=== PATIENT | male | born 1960 | race Caucasian/White ===

== ENCOUNTER 2021-04-19 15:45 | Emergency (ER) | payer BC ==
[~2021-04-19] VITALS: Ht 177.8 cm; Wt 111.2 kg
[~2021-04-19 15:45] MED LIST: ATEN50TA41 PO; DOCU100C40 PO; FOLI1TAB16 PO; MULT-1179 PO; THI100T PO
[2021-04-19 15:59] VITALS: BP 183/123
[2021-04-19 17:34] LABS: BASOPHILS # (AUTO) 0.1 X10'3 (0-0.2); BASOPHILS % (AUTO) 0.8 % (0-1); EOSINOPHILS # (AUTO) 0.1 X10'3 (0-0.9); EOSINOPHILS % (AUTO) 0.6 % (0-6); HEMATOCRIT 50.3 % (42.0-52.0); HEMOGLOBIN 17.1 g/dl (14.0-17.9); LYMPHOCYTES # (AUTO) 1.8 X10'3 (1.1-4.8); LYMPHOCYTES % (AUTO) 20.7 % (21-51); MEAN CORPUSCULAR HEMOGLOBIN 32.7 PG (27.0-31.0); MEAN CORPUSCULAR VOLUME 96.1 FL (78-98); MEAN PLATELET VOLUME 8.3 FL (7.4-10.4); MONOCYTES # (AUTO) 0.8 X10'3 (0-0.9); MONOCYTES % (AUTO) 9.1 % (2-12); NEUTROPHILS % (AUTO) 68.8 % (42-75); PLATELET COUNT 227 X10'3 (140-440); RED BLOOD COUNT 5.24 X10'6 (4.70-6.10); RED CELL DISTRIBUTION WIDTH 13.5 % (11.5-14.5); WHITE BLOOD COUNT 8.7 X10'3 (4.5-11.0)
[2021-04-19] MEDS ORDERED: LORazepam 2 mg/ml vial IM ONE (17:40)
[2021-04-19 17:57] LABS: ALANINE AMINOTRANSFERASE 45 U/L (12-78); ALBUMIN 3.3 G/DL (3.4-5.0); ALBUMIN/GLOBULIN RATIO 0.7 (1.1-1.5); ALKALINE PHOSPHATASE 117 IU/L (46-116); ANION GAP 10 (8-16); ASPARTATE AMINO TRANSFERASE 39 U/L (10-37); BILIRUBIN,TOTAL 0.9 MG/DL (0.1-1.0); BLOOD UREA NITROGEN 19 MG/DL (7-18); BUN/CREATININE RATIO 15.7 (5.4-32.0); C-REACTIVE PROTEIN 5.77 MG/DL (0.0-0.5); CALCIUM 8.7 MG/DL (8.5-10.1); CHLORIDE 98 MMOL/L (99-107); CREATININE 1.21 MG/DL (0.60-1.10); GLUCOSE 104 MG/DL (70-104); POTASSIUM 4.2 MMOL/L (3.5-5.1); SODIUM 134 MMOL/L (135-145); TOTAL CARBON DIOXIDE 26.1 MMOL/L (24-32); eGFR 61 ML/MIN
[2021-04-19] MEDS ORDERED: CIP750T PO (22:56)
[2021-04-19] MEDS ORDERED: ciprofloxacin 250mg tablet PO SCH (23:05)
[2021-04-20] MEDS ORDERED: ciprofloxacin 250mg tablet PO SCH (10:00)
== END 2021-04-19 23:33 | disposition home or self-care (01) ==
LOC: ER 15:46
DX: S91.301A Unspecified open wound, right foot, initial encounter (principal); M86.9 Osteomyelitis, unspecified; R73.03 Prediabetes; I10 Essential (primary) hypertension; Z86.19 Personal history of other infectious and parasitic diseases; Z79.2 Long term (current) use of antibiotics; Z79.899 Other long term (current) drug therapy; X58.XXXA Exposure to other specified factors, initial encounter; Y93.89 Activity, other specified; Y92.89 Other specified places as the place of occurrence of the external cause; Y99.8 Other external cause status
CPT/HCPCS: 36415; 73630; 80053; 84145; 85025; 85651; 86140; 99284

== ENCOUNTER 2021-05-19 14:17 | Emergency (ER) | payer BC ==
[~2021-05-19] VITALS: Ht 185.4 cm; Wt 104.3 kg
[2021-05-19] MEDS ORDERED: piperacillin/tazo 3.375gm/50ml 50 ML IV ONE (20:05)
[2021-05-19] MEDS ORDERED: vancomycin/NS 1 GM ADD-VANTAGE 250 ML IV ONE (20:05)
[2021-05-19] MEDS ORDERED: normal saline 1000ml 1,000 ML IV ONE ×2 (20:05→21:00)
[2021-05-19 20:29] LABS: BASOPHILS # (AUTO) 0.1 X10'3 (0-0.2); BASOPHILS % (AUTO) 0.9 % (0-1); EOSINOPHILS # (AUTO) 0.1 X10'3 (0-0.9); EOSINOPHILS % (AUTO) 1.9 % (0-6); HEMATOCRIT 48.9 % (42.0-52.0); HEMOGLOBIN 16.6 g/dl (14.0-17.9); LYMPHOCYTES % (AUTO) 36.5 % (21-51); MEAN CORPUSCULAR HGB CONC 33.8 g/dL (33.0-36.5); MEAN CORPUSCULAR VOLUME 94.7 FL (78-98); MEAN PLATELET VOLUME 8.5 FL (7.4-10.4); MONOCYTES # (AUTO) 0.6 X10'3 (0-0.9); MONOCYTES % (AUTO) 11.1 % (2-12); NEUTROPHILS # (AUTO) 2.8 X10'3 (1.8-7.7); NEUTROPHILS % (AUTO) 49.6 % (42-75); PLATELET COUNT 309 X10'3 (140-440); RED BLOOD COUNT 5.17 X10'6 (4.70-6.10); RED CELL DISTRIBUTION WIDTH 13.3 % (11.5-14.5); WHITE BLOOD COUNT 5.6 X10'3 (4.5-11.0)
[2021-05-19 20:43] LABS: ALANINE AMINOTRANSFERASE 76 U/L (12-78); ALBUMIN 3.5 G/DL (3.4-5.0); ALBUMIN/GLOBULIN RATIO 0.7 (1.1-1.5); ALKALINE PHOSPHATASE 138 IU/L (46-116); ANION GAP 14 (8-16); ASPARTATE AMINO TRANSFERASE 69 U/L (10-37); BILIRUBIN,TOTAL 0.4 MG/DL (0.1-1.0); BLOOD UREA NITROGEN 25 MG/DL (7-18); BUN/CREATININE RATIO 14.5 (5.4-32.0); CALCIUM 8.9 MG/DL (8.5-10.1); CHLORIDE 98 MMOL/L (99-107); CREATININE 1.73 MG/DL (0.60-1.10); GLUCOSE 90 MG/DL (70-104); POTASSIUM 3.8 MMOL/L (3.5-5.1); SODIUM 135 MMOL/L (135-145); TOTAL CARBON DIOXIDE 23.2 MMOL/L (24-32); TOTAL PROTEIN 8.4 G/DL (6.4-8.2); eGFR 41 ML/MIN
[2021-05-19 23:10] VITALS: BP 128/95
== END 2021-05-19 23:12 | disposition home or self-care (01) ==
LOC: ER 14:19
DX: L02.611 Cutaneous abscess of right foot (principal); M86.9 Osteomyelitis, unspecified; I10 Essential (primary) hypertension; Z98.890 Other specified postprocedural states; Z79.899 Other long term (current) drug therapy
CPT/HCPCS: 36415; 80053; 83605; 84145; 85025; 87040; 96365; 96366; 96368; 99285; J2543; J3370; J7030

== ENCOUNTER 2022-03-10 19:47 | Outpatient (CLI) | payer BC ==
[~2022-03-10 19:47] MED LIST changes: -FOLI1TAB16 PO; +FOLI1TAB27 PO
[2022-03-10 20:13] LABS: BASOPHILS # (AUTO) 0.1 X10'3 (0-0.2); BASOPHILS % (AUTO) 1.4 % (0-1); EOSINOPHILS # (AUTO) 0.3 X10'3 (0-0.9); EOSINOPHILS % (AUTO) 5.9 % (0-6); HEMATOCRIT 44.2 % (42.0-52.0); HEMOGLOBIN 14.4 g/dl (14.0-17.9); LYMPHOCYTES # (AUTO) 1.6 X10'3 (1.1-4.8); LYMPHOCYTES % (AUTO) 34.9 % (21-51); MEAN CORPUSCULAR HGB CONC 32.6 g/dL (33.0-36.5); MEAN CORPUSCULAR VOLUME 88.8 FL (78-98); MEAN PLATELET VOLUME 9.2 FL (7.4-10.4); MONOCYTES # (AUTO) 0.4 X10'3 (0-0.9); MONOCYTES % (AUTO) 7.6 % (2-12); NEUTROPHILS # (AUTO) 2.3 X10'3 (1.8-7.7); NEUTROPHILS % (AUTO) 50.2 % (42-75); PLATELET COUNT 257 X10'3 (140-440); RED BLOOD COUNT 4.98 X10'6 (4.70-6.10); WHITE BLOOD COUNT 4.7 X10'3 (4.5-11.0)
[2022-03-10 20:16] LABS: ALBUMIN 3.5 G/DL (3.4-5.0); ANION GAP 10 (8-16); BLOOD UREA NITROGEN 19 MG/DL (7-18); BUN/CREATININE RATIO 20.7 (5.4-32.0); C-REACTIVE PROTEIN 0.15 MG/DL (0.0-0.5); CHLORIDE 105 MMOL/L (99-107); CREATININE 0.92 MG/DL (0.60-1.10); GLUCOSE 108 MG/DL (70-104); POTASSIUM 4.6 MMOL/L (3.5-5.1); SODIUM 141 MMOL/L (135-145); TOTAL CARBON DIOXIDE 26.4 MMOL/L (24-32); eGFR 84 ML/MIN
== END 2022-03-10 23:59 | disposition home or self-care (01) ==
LOC: LAB SPEC 19:47
PROVIDERS: ATTEND Internal Medicine Infectious Disease
DX: M86.171 Other acute osteomyelitis, right ankle and foot (principal)
CPT/HCPCS: 36415; 80048; 85025; 86140

== ENCOUNTER 2025-08-11 18:21 | Inpatient (IN) | payer BC ==
[~2025-08-11] VITALS: Ht 182.9 cm; Wt 94.6 kg
[2025-08-11 19:00] LABS: MEAN PLATELET VOLUME 7.5 FL (7.4-10.4); RED CELL DISTRIBUTION WIDTH 13.3 % (11.5-14.5)
[2025-08-11 19:14] LABS: CREATININE 1.29 MG/DL (0.60-1.10); TOTAL CARBON DIOXIDE 26.6 MMOL/L (24-32); eCRCL 64 ML/MIN; eGFR 56 ML/MIN
--- NOTE | 2025-08-11 20:36 | Physician Documentation ---
History of Present Illness ~ Chief Complaint: Foot pain Stated Complaint: L FOOT INFECTION Time Seen by MD: 20:29 Primary Medical Doctor: none HPI Patient presents to the emergency room for evaluation of his left foot. He reports history of some degree of rheumatoid arthritis diagnosed years ago but untreated but he feels this is related to that has deformities of his toes that over time get worse and curled underneath his feet. He states he has had elective amputations in his right side it has been going to wound care for his infected toe in his left. Yesterday he is at his wound care clinic and they were cleaning it and he states that they suddenly took a piece of bone out of the foot and recommended he goes to the emergency room. He denies history of diabetes Tetanus witin 5 years: Yes Medication Reconciliation Allergies: Coded Allergies: No Known Allergies (Unverified , 08/11/10) Scheduled Atenolol (Atenolol), 50 MG PO DAILY Docusate Sodium (Docusate Sodium), 100 MG PO BID Folic Acid* (Folic Acid*), 2 MG PO DAILY Multivitamins,Therapeutic* (Theragran-M*), 1 EACH PO Q24H Thiamine Hcl (Thiamine Hcl), 100 MG PO DAILY Past Medical History Past Medical History: Hypertension, Cellulitis Past Surgical History: orthopedic surgeries Other Past Surgical History: Right foot x in 2011 Drug Use: none Lives with: Spouse Lives In: Home Occupation: employed Review of Systems ROS All review of systems negative except as per HPI Physical Exam Vital Signs: Temperature: 97.3, Source: Temporal, Heart Rate: 96, Respiratory Rate: 16, BP: 156/103, Pulse Oximetry: 100, Weight: 94.550 Physical Exam General: Patient is awake, alert, oriented x4 in no acute distress and well appearing.~ Head: Normocephalic and atraumatic. Eyes: Conjunctival normal. EOMI. PERRL. ENT: Mucous membranes moist. Neck: Supple, trachea is midline. Chest: Clear to auscultation bilaterally without rales, rhonchi, or wheezes. There is no accessory muscle use or retractions. Cardiac: RRR without murmurs, gallops, or rubs. Extremities: Good plethora of left foot however that has some darkening of the area around his MP joint of the lateral foot with a cavernous opening in between his 4th and 5th digits Progress Results/Orders Results/Orders Orders - ELLIOT HAGER MD Culture Blood (08/11/25 18:37) ESR (08/11/25 20:45) Piperacillin/Tazo 3.375gm/50ml (Zosyn 3. (08/11/25 21:05) Vancomycin/Ns 1 Gm Add-[place] (Vancomyc (08/11/25 21:05) Page Hospitalist (08/11/25 21:04) Fill Out Med Reconciliation (08/11/25 21:04) Completed Orders - ELLIOT HAGER MD Cbc/Diff (08/11/25 18:37) MG (08/11/25 18:37) Procalcitonin (08/11/25 18:37) BMP (08/11/25 18:37) Lacticsepsis (08/11/25 18:37) C-Reactive Protein (08/11/25 20:45) Vancomycin 1gm 200ml H20 (Peg) (Vancomyc (08/11/25 21:05) Vital Signs 08/11/25 08/11/25 08/11/25 18:30 20:36 21:00 Temp 97.3 97.3 Pulse 96 97 Resp 16 16 B/P (MAP) 156/103 170/108 (128) Pulse Ox 100 97 O2 Flow Rate 0 Laboratory Tests Test 08/11/25 18:48 White Blood Count 6.8 Red Blood Count 4.62 L Hemoglobin 14.9 Hematocrit 44.6 Mean Corpuscular Volume 96.5 Mean Corpuscular Hemoglobin 32.3 H Mean Corpuscular Hemoglobin Concent 33.4 Red Cell Distribution Width 13.3 Platelet Count 380 Mean Platelet Volume 7.5 Neutrophils (%) (Auto) 70.4 Lymphocytes (%) (Auto) 20.1 L Monocytes (%) (Auto) 7.5 Eosinophils (%) (Auto) 1.2 Basophils (%) (Auto) 0.8 Neutrophils # (Auto) 4.8 Lymphocytes # (Auto) 1.4 Monocytes # (Auto) 0.5 Eosinophils # (Auto) 0.1 Basophils # (Auto) 0.1 CBC Comment Sodium Level 138 Potassium Level 4.7 Chloride Level 104 Carbon Dioxide Level 26.6 Anion Gap 7 L Blood Urea Nitrogen 21 H Creatinine 1.29 H Estimated GFR/1.73 m2 56 BUN/Creatinine Ratio 16.3 Glucose Level 104 Lactic Acid Level 0.8 Calcium Level 8.6 Magnesium Level 2.3 C-Reactive Protein 3.18 H Albumin 2.8 L Procalcitonin < 0.05 Chemistry Comments Microbiology Date/Time Source Procedure Growth Status 08/11/25 18:51 Blood Arm Left Blood Culture - Preliminary NEGATIVE (LESS THAN 24 HOURS) Resulted Medical Decision Making Additional information obtaine: old records Findings Patient presented to the emergency room with foot ulcer to his left foot. Differentials include but are not limited to osteomyelitis, osteonecrosis, abscess, cellulitis, necrotizing fasciitis. Given history and physical exam he had not believe patient is suffering from necrotizing fasciitis. He is suffering from obvious osteomyelitis and we will admit for orthopedic consult and intervention. General Diff Dx:Considerations: Include: Abrasion, Contusion, Fracture, Hematoma, Laceration, Malunion, Neurovascular injury, Open fracture, Sprain, Ulcer, Other Knee Diff Dx:Considerations: Include: Abrasion, Arthritis, Contusion, DJD, Fracture-femur, Fracture-fibula, Fracture-patella, Fracture-tibia, Gout, Hematoma, Laceration, Meniscus injury, Neurovascular injury, Open fracture, Rheumatoid arthritis, Septic, Sprain, Sprain-MCL, Sprain-LCL, Sprain-ACL, Sprain-PCL, Other Ankle Diff Dx:Considerations: Include: Abrasion, Arthritis, Contusion, DJD, Fracture-metatarsal, Fracture-fibula, Fracture-tarsal, Fracture-tibia, Gout, Hematoma, Laceration, Malunion, Neurovascular injury, Nonunion, Open fracture, Osteomyelitis, Rheumatoid arthritis, Sprain, Septic, Ulcer, Other Foot Diff Dx:Considerations: Include: Abrasion, Arthritis, Cellulitis, Contusion, Dislocation, DJD, Fracture-metatarsal, Fracture-phalynx, Fracture- tarsal, Gout, Hematoma, Ingrown toenail, Laceration, Malunion, Neurovascular injury, Open fracture, Paronychia, Puncture, Rheumatoid, Sprain, Septic, Subungual hematoma, Ulcer, Other Toe Diff Dx:Considerations: Include: Abrasion, Cellulitis, Contusion, Dislocation, Felon, Fracture, Hematoma, Laceration, Neurovascular injury, Open fracture, Paronychia, Subungual hematoma, Other Departure Disposition: 01 HOME / SELF CARE / HOMELESS Impression: Primary Impression: Osteomyelitis Condition: Guarded Referrals: NO PRIMARY CARE PROVIDER (PCP) Signature Scribe Signature: No scribe Attestation: The note accurately reflects work and decisions made by me.Elliot Hager MD 08/11/25 21:17 ELLIOT HAGER MD Aug 11, 2025 20:36
--- NOTE | 2025-08-11 20:37 | RADIOLOGY REPORT ---
CLINICAL INDICATION: ROM LEFT TECHNIQUE: 3 views DI FOOT, COMPLETE (3VW MIN) Comparison: None FINDINGS: Exam limited by severe osteopenia and beam over penetration. Erosive and fragmented appearance of the 4th toe involving the metatarsal neck, head, and proximal phalangeal base. Remote appearing mid to distal 5th metatarsal amputation. Advanced chronic degenerative change and deformity of the 2nd MTP an d 1st interphalangeal joints. Nonfocal soft tissue swelling of the forefoot. Mild degenerative changes of the midfoot and hindfoot. IMPRESSION: 1. Limited exam due to technical factors as above, unknown prior surgical history, and lack of comparison imaging. 2. Fracture versus osteomyelitis spanning the 4th MTP joint as described. 3. Remote partial 5th metatarsal resection/amputation. Advanced chronic degenerative changes of the 1st and 2nd toes. Other chronic and incidental findings above.
[2025-08-11] MEDS ORDERED: VANCOMYCIN 1GM 200ML H20 (PEG) 200 ML IV ONE (21:05)
[2025-08-11] MEDS ORDERED: AMOX-580 PO (21:38)
[2025-08-11] MEDS ORDERED: APIX5TAB3 PO (21:38)
[2025-08-11] MEDS ORDERED: MUPI22OI30 TP (21:38)
[2025-08-11] MEDS: piperacillin/tazo 3.375gm/50ml 50 ML IV ONE (21:39)
[2025-08-11] MEDS: vancomycin/NS 1 GM ADD-VANTAGE 250 ML IV ONE (22:05)
[2025-08-11] MEDS ORDERED: potassium Cl 20 mEq SR tablet PO PRN ×2 (22:20)
[2025-08-11] MEDS ORDERED: magnesium Cl slow-release 64mg tablet PO PRN (22:20)
[2025-08-11] MEDS ORDERED: magnesium sulf-water 2g/50mL 50 ML IV PRN (22:20)
[2025-08-11] MEDS ORDERED: potassium Cl 40MEQ/1/2NS 520ml 520 ML IV PRN (22:20)
[2025-08-11] MEDS ORDERED: ondansetron/PF 4mg/2ml inj IV PRN (22:20)
[2025-08-11] MEDS ORDERED: magnesium hydroxide 30ml (MOM) UD suspension PO PRN (22:20)
[2025-08-11] MEDS ORDERED: mag hydrox/Alum hydrox/simeth 30ml oral suspension PO PRN (22:20)
[2025-08-11] MEDS ORDERED: magnesium sulf-water 4G/100mL 100 ML IV PRN (22:20)
--- NOTE | 2025-08-11 22:39 | HISTORY AND PHYSICAL-Residence ---
History & Physical Providers to CC Resident Creating Document: CRISTIANORAY, RES ~ History of Present Illness Primary Medical Doctor: none Reason for Admit\Complaint: Left foot abscess History of Present Illness Vinh Verdin is a 65 years old male pmh of rheumatoid arthritis, hypertension, AFib, partial right foot amputation came to the ED for the evaluation of left foot infection. Yesterday, the patient was seen at [facility] for infected 5th toe of left foot and while they were performing wound care, patient stated that they took piece of bone out, sent the specimen to [place] [facility] and recommended to go to ER. Patient endorses that 3 months ago he had small blister on the left food which was gradually progressed and infected. Patient denies pain and redness in left foot, fever, chills or neuropathic pain. Allergies: Coded Allergies: No Known Allergies (Unverified , 08/11/10) Home Medications Home Medications Active Atenolol 50 Mg Tablet 50 Mg PO DAILY Reported Augmentin 875/125 MG (Amoxicillin/Clavulanate Potassium) 875 Mg-125 Mg Tablet 1 Tab PO Q12H 10 Days Eliquis (Apixaban) 5 Mg Tablet 1 Tab PO Q12H 30 Days Bactroban* (Mupirocin) 22 Gm Tube 1 Applic TP BID Past Medical History Past Medical History rheumatoid arthritis hypertension AFib partial right foot amputation Past Surgical History Surgical History Comment partial right foot amputation Past Social History Smoking: Non-Smoker Alcohol Use: Occasionally Drug Use: None Lives with: Spouse Lives In: Home Occupation: employed ROS ROS Constitutional: No fever, chills, dizziness, weight gain or loss, night sweats Eyes: No pain, erythema, discharge, blurring of vision ENT: No sore throat, epistaxis, tinnitus Cardiovascular:No chest pain, palpitations, syncope, lower extremity edema, paroxysmal nocturnal dyspnea Respiratory: No Shortness of breath and cough, No hemoptysis. Gastrointestinal:No Abdominal pain, vomiting,nausea and melena. Normal appetite. No constipation,diarrhea, hematemesis, Musculoskeletal: No swelling or edema of extremities. Integumentary: No change in skin, hair, nails. No swelling, bruising, abrasions Neurologic: No weakness,No headache, neck pain, numbness or tingling of the extremities, Psychiatric: No delusions, depression, loss of interest in normal activity or change in sleep pattern, hallucinations, suicidal ideations Endocrine: No fatigue, no weakness. polydipsia, polyuria, change in appetite, heat or cold intolerance, sweating, dry skin Hematological: No bleeding, petechiae, bruising Allergies: No asthma or urticaria Exam Vitals: Vital Signs Date Time Temp Pulse Resp B/P (MAP) Pulse Ox O2 Delivery O2 Flow Rate FiO2 08/11/25 21:47 97.3 104 16 157/101 (119) 94 0 General: Awake , alert and oriented to time,place, person,not in distress HEENT: Atraumatic, normocephalic, PERRLA, EOMI, anicteric sclera ; pink conjunctiva, moist mucos membranes Neck: Trachea midline. Supple, normal range of motion, no JVD, no lymphadenopathy Chest and Respiratory: Equal breath sounds bilaterally, no tachypnea, wheezing, ronchi,rubs .Chest wall is symmetric and without deformity. Cardiac: S1, S2 heard,Regular rate and rhythm, no murmurs ,no gallops, no rubs. Abdomen: Soft, No tenderness, No guarding or rigidity, Farrar's sign negative. normal bowel sounds x4 quadrant, no hepatosplenomegaly MSK: Range of motion of all extremities are normal. There is no joint pain or joint swelling or joint erythema. There is no muscle pain or tenderness or swelling. Right lower extremity: Partial right foot amputation with well-healed scar, Left lower extremity: A 2 cm circular wound with central purulent discharge is noted on plantar surface near the 4th metatarsal head and abscess in interdigital space between 4th and 5th toe, ++ warm to touch Extremities: warm, well-perfused, No cyanosis, clubbing, 2+ pulses felt Neurological: Mental status exam: alert and consciousness, orientation, memory, speech - Cranial nerve test: Cranial nerves II-XII intact. - Motor system: Normal Nutrition, normal tone, Power 5/5, no involuntary movements - Sensory system: Intact - Reflex testing: Biceps, triceps and knee reflexes 2+ - Cerebellar: Normal Skin: Warm and dry Psychiatry: Affect and mood are normal Diagnostic Data Last Recorded Lab Results: 08/11/25184708/11/251847 Advance Care Planning Advanced Care plannin - 30 Minutes (I spent a total of 17 minutes on reviewing various resuscitative measures with the patient at the time of admission. The patient has decided on a full code status) Additional Plan Left foot abscess on 4th interdigital space and plantar surface Rule out osteomyelitis X-ray: Fracture versus osteomyelitis spanning the 4th MTP joint as described. Remote partial 5th metatarsal resection/amputation. WBC, lactate, procalcitonin are in normal limits ESR is 34 and CRP is 3.18 Ordered MRI of LLE in suspicion of osteomyelitis Dr. Arora, the podiatry Dr consult in the morning. Consult Infectious Disease in the morning Wound care was consulted Follow up on culture of abscess, blood Follow up on bone pathology report from [place] [facility] Started on IV vancomycin pharmacy to dose daily Started on IV Zosyn q.8h daily IV NS @ 100 mL/hr Mild acute kidney injury Creatinine is 1.29, BUN 21 IV NS @ 100 mL/hr Monitor BMP levels Hypertension BNP is 3626 Follow up on echocardiogram History of atrial fibrillation EKG showed normal sinus rhythm Held Eliquis, in view of possible surgery Code status: Full code DVT prophylaxis : SCDs Nutrition: Regular diet Physical therapy: ordered Line/tube: PIV Analgesia/sedation: Morphine Disposition: Continue antibiotics, follow up on , the museum guide and consult infectious disease. Resident attestation The above note has been reviewed and supervised by a senior resident PGY2/PGY3 Patient was seen, examined and discussed with the attending physician Travis Barragan MD Internal Medicine Resident, PGY 1 Patient was assessed and case discussed with resident. I agree with the H&P and assessment and plan as above, with no change. Yany Plascencia MD Critical Care Date of Service: Aug 11, 2025 Billing Provider: YANY PLASCENCIA MD, SUNIL KUMAR, RES Aug 11, 2025 22:39 YANY PLASCENCIA MD Aug 13, 2025 19:01
[2025-08-11 22:41] LABS: APTT 28 SECONDS (22-32); INR 1.2 INR
[2025-08-11] MEDS: normal saline 1000ml 1,000 ML IV SCH (22:47)
[2025-08-11 22:55] LABS: PHOSPHORUS 3.8 MG/DL (2.3-4.5); PRO BRAIN NATRIURETIC PEPTIDE 3626 PG/ML (0-125)
[2025-08-12 02:53] LABS: LEUKOCYTE ESTERASE ,URINE NEGATIVE (Neg); NITRITES, URINE NEGATIVE (Neg); OCCULT BLOOD,URINE NEGATIVE (Neg)
[2025-08-12 03:01] LABS: UA COLLECTION TYPE CLN CATCH MIDSTREAM
[2025-08-12 04:32] VITALS: BP 150/103; PULSE 94; RESP 14; TEMP 98.1; O2SAT 97
[2025-08-12 04:41] VITALS: RESP 14; O2SAT 98
[2025-08-12 06:00] VITALS: BP 153/96; PULSE 88; RESP 14; TEMP 97.4; O2SAT 99
[2025-08-12 06:13] LABS: MEAN PLATELET VOLUME 7.7 FL (7.4-10.4); RED CELL DISTRIBUTION WIDTH 13.4 % (11.5-14.5)
[2025-08-12 06:36] LABS: CHOL/HDL RATIO 2.8 (0.00-4.99); CREATININE 1.15 MG/DL (0.60-1.10); LDL CHOLESTEROL 83 MG/DL (50-100); TOTAL CARBON DIOXIDE 26.2 MMOL/L (24-32); eCRCL 72 ML/MIN; eGFR 64 ML/MIN
[2025-08-12] MEDS: K and/or MAG REPLACEMENT MC SCH (08:00)
[2025-08-12] MEDS: docusate sod 100mg capsule PO SCH (08:00)
[2025-08-12] MEDS: vancomycin/NS 1 GM ADD-VANTAGE 250 ML IV SCH (09:40)
[2025-08-12 10:00] VITALS: BP 157/96; PULSE 81; RESP 14; TEMP 97.7; O2SAT 99
[2025-08-12] MEDS: piperacillin/tazo 4.5gm/100ml 100 ML IV SCH (10:05)
--- NOTE | 2025-08-12 12:16 | RADIOLOGY REPORT ---
CLINICAL INDICATION: Possible osteomyelitis. COMPARISON: MRI LOWER EXTREMITY RIGHT on DOS: 05/05/21 TECHNIQUE: Multiplanar, multisequence MRI of the left foot was performed without intravenous contrast. Contrast: None. INTERPRETATION: Bones: There is T1 hypointensity in the 3rd metatarsal bone, the 3rd proximal phalanx, the 4th metatarsal, the 4th proximal, middle and distal phalanx, and 5th metatarsal distally as well as the 5th proximal phalanx. There is corresponding edema in all a These Bones. There is cortical destruction in the 4th metatarsal head. Findings are consistent with osteomyelitis. There is T1 hypointensity in the navicular bone, intermediate cuneiform, lateral cuneiform and the cuboid as well as the lateral aspect of the talus with patchy corresponding T1 hypointensity also reflecting osteomyelitis. Soft tissues: Diffuse soft tissue edema in the forefoot particularly the surrounding the 3rd, 4th and 5th toes. Ulceration noted in the plantar surface of the forefoot deep to the 4th metatarsal bone. IMPRESSION: 1. Osteomyelitis in the 3rd, 4th and 5th metatarsal bones, the 3rd proximal phalanx, 4th proximal, middle and distal phalanx and the 5th proximal phalanx as well as the navicular bone, lateral aspect of the talus, intermediate and lateral cuneiform, as described. 2. Soft tissue ulceration in the plantar surface of the forefoot deep to the 4th toe. Diffuse cellulitis in the forefoot.
--- NOTE | 2025-08-12 15:28 | CONSULTATION REPORT ---
History of Present Illness Providers to CC ~ Reason for Admit\Admit Dx: Left foot abscess Refering MD: Dr Leahy History of Present Illness The patient is a 65-year-old man known to me for neuropathy in his feet. He had some surgery years ago on the left foot. He has subsequently had a transmetatarsal amputation on the right foot. He presented with a several week history of the swelling and ulceration on his left foot. He was seen at [facility] where a loose piece of bone was pulled out of the wound and then referred to the ER. X-ray and MRI have been done Allergies: Coded Allergies: No Known Allergies (Unverified , 08/11/10) Home Medications Home Medications Active Atenolol 50 Mg Tablet 50 Mg PO DAILY Reported Augmentin 875/125 MG (Amoxicillin/Clavulanate Potassium) 875 Mg-125 Mg Tablet 1 Tab PO Q12H 10 Days Eliquis (Apixaban) 5 Mg Tablet 1 Tab PO Q12H 30 Days Bactroban* (Mupirocin) 22 Gm Tube 1 Applic TP BID Past Family History Family History: FH: breast cancer GRANDFATHER OR GRANDMOTHER Physical Exam Last Vital Signs Recorded: Temperature: 97.7, Source: Oral, Heart Rate: 81, Respiratory Rate: 14, BP: 157/96, Pulse Oximetry: 99, Weight: 94.550 General Appearance: alert, no apparent distress Extremities He has all his toes. There is a communicating sinus from between the 4th and 5th toe out through the plantar aspect of the foot which is packed with a dressing them. There was no obvious purulent discharge the but it is somewhat swollen and erythematous. There was generalized warmth about the foot. There was no reaction to light touch about the foot. Results Results/Orders Results/Orders X-rays and MRI reviewed. He has absence of the mid portion of the 5th metatarsal and destruction of the distal half of the 4th metatarsal Diagram Lab Result Diagram: 08/12/2528 08/12/25527 Assessment/Plan Problems/Diagnosis: (1) Non-healing wound Additional Plan I believe the proper treatment for this problem would be 4th and 5th toe amputation and amputation through the 4th and 5th metatarsals. I discussed this with the patient and he is agreement that this can be done. We will schedule this for tomorrow afternoon once OR time becomes available. DUONG CHEEMA Jr., MD Aug 12, 2025 15:28
--- NOTE | 2025-08-12 17:41 | ELECTROCARDIOGRAPH REPORT ---
[facility] Test Date: 2025-08-12 Test Time: 17:39:49 Pat Name: DEBI COCHRAN Department: [facility] Patient ID: [facility]-[id number] Room: [place] [id number] A Gender: M Shoe Repairer: : 1960 Requested By: DUONG CHEEMA Order Number: [id number] Reading MD: Dr. Willa Briones Measurements Intervals [place] Rate: 88 P: 0 AK: 0 QRS: 67 QRSD: 84 T: 50 QT: 372 QTc: 450 Interpretive Statements Atrial fibrillation Low voltage, extremity leads Electronically Signed On 08-13-2025 7:00:[address] Willa Briones Please click the below link to view image of tracing.
[2025-08-12 18:00] VITALS: BP 133/88; PULSE 77; RESP 14; TEMP 97.1; O2SAT 99
[2025-08-12] MEDS: JUVEN Shake w/Arg/Glut/Ca2+Bmb (Juven 19.3gm) pkt 240ml PO SCH (18:15)
--- NOTE | 2025-08-12 18:44 | CARDIOLOGY REPORT ---
APPROVED REPORT EXAM: Comprehensive 2D, Doppler, and color-flow Echocardiogram. Patient Location: 401 Blood Pressure: 153/96 mmHg Heart Rate: 99 bpm Indications Hypertension CIRCUS ROUSTABOUT: Nasima Briones MD Previous ECHO: 08/10/21, CVC, EF: 65; mod RVE; sev MARII; m GR 2D Dimensions LA Diam 4.2 cm IVSd 0.9 (0.7-1.1cm) LVDd 4.3 cm PWd 0.6 (0.7-1.1cm) RA Major 6.8 cm IVSs 1.2 (0.8-1.2cm) RA Minor 4.8 cm LVDs 3.0 (2.5-4.0cm) Aortic Root(2D) 2.1 cm PWs 1.2 (0.8-1.2cm) LVOT Diameter 2.06 (1.8-2.4cm) LVEF(%) 58.3 (>50%) Ao Asc Diam. 2.77 cm IVC 22.76 mm FS (%) 30.5 % SV 48.0 ml CO 3.7 L/min M-Mode Dimensions Left Atrium(MM) 4.90 (2.5-4.0cm) Aortic Root 3.02 (2.2-3.7cm) Aortic Cusp Exc 1.65 (1.5-2.0cm) MV EPSS 0.5 (<0.5cm) Aortic Valve AoV Peak Claus. 134.6 cm/s AoV VTI 24.6 cm AO Peak GR. 7.2 mmHg AO Mean GR. 4 mmHg LVOT VTI 19.05 cm LVOT Peak Claus. 104.9 cm/s RACHELLE(VTI)/BSA 2.58 cm2/m2 RACHELLE (VTI) 2.58 cm2 AI P 1/2 Time 632 ms AV DI 0.77 % TDI Lateral E' P. V 7.12 cm/s Tricuspid Valve TR P. Velocity 298 cm/s RAP ESTIMATE 10 mmHg TR Peak Gr. 36 mmHg RVSP 46 mmHg LEFT VENTRICLE Normal LV size and wall thickness. Overall systolic function is normal. LVEF is 60%. RIGHT VENTRICLE Right ventricle appears mildly dilated with adequate contractility. Elevated right heart pressures of 46 mmHg. ATRIA Left atrium is moderately dilated. Right atrium is moderately dilated. AORTIC VALVE Trileaflet AV appears mildly sclerotic without stenosis. Mild insufficiency. MITRAL VALVE Mild mitral annular calcification without stenosis. Trace regurgitation. TRICUSPID VALVE The tricuspid valve is normal in structure with mild regurgitation. PULMONIC VALVE The pulmonary valve is normal in structure with physiologic insufficiency. GREAT VESSELS The aortic root is normal in size. The ascending aorta is normal in size. IVC is dilated and collapses less than 50% with inspiration. PERICARDIUM Normal pericardium. No effusion. Conclusion Normal LV size and wall thickness. Overall systolic function is normal. LVEF is 60%. Right ventricle appears mildly dilated with adequate contractility. Elevated right heart pressures of 46 mmHg. Left atrium is moderately dilated. Right atrium is moderately dilated. Trileaflet AV appears mildly sclerotic without stenosis. Mild insufficiency. Mild mitral annular calcification without stenosis. Trace regurgitation. The tricuspid valve is normal in structure with mild regurgitation. The pulmonary valve is normal in structure with physiologic insufficiency. Normal pericardium. No effusion.
--- NOTE | 2025-08-12 19:30 | PROGRESS NOTE ---
Daily Progress Note Providers to CC ~ Antibiotic Timeout Antibiotic Ordered?: Yes Subjective The patient is very jovial even though he is aware he may have an amputation of his left foot has has a previous amputation of the right foot. The patient requested that Dr. Alvarez evaluate the patient for possible surgery Objective Vital Signs Date Time Temp Pulse Resp B/P (MAP) Pulse Ox O2 Delivery O2 Flow Rate FiO2 08/12/25 10:00 97.7 81 14 157/96 (116) 99 Room Air 08/12/25 00:05 0 Result Diagram: 08/12/2552708/12/25527 Gen. No acute distress alert and oriented 4 Lungs clear to ascultation bilaterally, no wheezes rales or rhonchi appreciated Heart normal sinus rhythm no murmurs rubs or clicks noted Abdomen soft nontender bowel sounds are normoactive Lower extremities dressing is present on the left lower extremity as well as the right foot Coagulation Studies Laboratory Tests Test 08/11/25 18:48 Prothrombin Time 12.1 SECONDS (9.0-12.0) H INR International Normalized Ratio 1.2 INR Activated Partial Thromboplast Time 28 SECONDS (22-32) Coagulation Comments Problem\\Assessment\\Plan Problems/Diagnosis: (1) Osteomyelitis # left foot abscess # osteomyelitis of the left foot On IV Zosyn and IV vancomycin MRI with the following findings: "1. Osteomyelitis in the 3rd, 4th and 5th metatarsal bones, the 3rd proximal phalanx, 4th proximal, middle and distal phalanx and the 5th proximal phalanx as well as the navicular bone, lateral aspect of the talus, intermediate and lateral cuneiform, as described. 2. Soft tissue ulceration in the plantar surface of the forefoot deep to the 4th toe. Diffuse cellulitis in the forefoot." Dr. Alvarez orthopedic surgeon consulted on the patient and will be taking the patient to surgery tomorrow. # history of atrial fibrillation currently in sinus rhythm Apixaban is held for surgery # kidney disease possibly KAMRON versus CKD Daily labs are ordered Date of Service: Aug 12, 2025 Billing Provider: DO MAYA DO Common Visit Codes: [id number] INP/OBS CARE(HIGH) DO MAYA DO Aug 12, 2025 19:30
[2025-08-12 22:00] VITALS: BP 147/91; PULSE 94; RESP 20; TEMP 97.6; O2SAT 99
[2025-08-13] VITALS (21 sets, daily range): BP systolic 128–174; BP diastolic 86–110; PULSE 72–118; RESP 10–20; TEMP 97.8–98.4; O2SAT 95–100
[2025-08-13 06:40] LABS: MEAN PLATELET VOLUME 8.0 FL (7.4-10.4); RED CELL DISTRIBUTION WIDTH 13.4 % (11.5-14.5)
[2025-08-13 06:50] LABS: CREATININE 1.14 MG/DL (0.60-1.10); TOTAL CARBON DIOXIDE 26.9 MMOL/L (24-32); eCRCL 73 ML/MIN; eGFR 65 ML/MIN
[2025-08-13] MEDS: VANCOMYCIN LEVEL IV ONE (09:58)
[2025-08-13] MEDS ORDERED: cloNIDine hcl/PF 100mcg/ml inj ONE (14:45)
[2025-08-13] MEDS ORDERED: fentaNYL/PF 50MCG/1 ML 2ML syringe ONE (14:47)
[2025-08-13] MEDS ORDERED: midazolam 1 mg/ML 2ml injection ONE (14:48)
[2025-08-13] MEDS ORDERED: ondansetron/PF 4mg/2ml inj IV PRN (14:55)
[2025-08-13] MEDS ORDERED: HYDROmorphone/PF 0.2 MG/ML SYRINGE IV PRN ×2 (14:55)
[2025-08-13] MEDS ORDERED: morphine 4 MG/ML inj SYRINge IV PRN (14:55)
[2025-08-13] MEDS ORDERED: acetaminophen 1,000mg/100ml IV 100 ML IV PRN (14:55)
[2025-08-13] MEDS: ringers solution, lacted 1,000 ML IV SCH (14:55)
[2025-08-13] MEDS ORDERED: dexamethasone sod phosphate 4mg/ml inj. ONE (15:22)
[2025-08-13] MEDS ORDERED: ROPIVAcaine 0.5% (5mg/ml) 30ml vial ONE (15:22)
[2025-08-13] MEDS ORDERED: LIDOcaine 2% (20mg/ml) 5ml vial ONE (15:22)
[2025-08-13] MEDS ORDERED: propofol inj 20 ML IV ONE (15:22)
[2025-08-13] MEDS ORDERED: ondansetron/PF 4mg/2ml inj ONE (15:23)
--- NOTE | 2025-08-13 15:52 | OPERATIVE REPORT ---
Operative Report Providers to ~ Date of Procedure: Aug 13, 2025 Pre-Operative Diagnosis: Chronic osteomyelitis left foot Post-Operative Diagnosis SAME as PRE-Op Procedure Performed Left foot amputation of the 4th and 5th metatarsals Surgeon: Noel Alvarez MD Lbd Teacher None Anesthesiologist: Jameel Montoya Type of Anesthesia: General Findings: Ankle block in addition to general anesthetic given Estimated Blood Loss: None Specimen Removed: None. 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 He has had multiple surgeries including amputations of the toes in his right foot and partial amputation of bone on his left foot. He presented with a chronic draining ulcer with the exposed bone around the 4th and 5th toes. Imaging showed destruction of the 4th and 5th metatarsals. Surgery is indicated to eliminate infection and effect bone coverage. Consent was obtained from the patient. Risks and benefits were discussed as well including but not limited to infection, bleeding, wound healing issues and need for further surgery. He agreed to proceed. He was given a general anesthetic in the leg was prepped and draped in usual manner with a tourniquet on the calf. An incision was made laterally over the foot and the remnant of the 5th metatarsal was identified. It was an ulceration on both the plantar and dorsal aspect between the 4th and 5th toes. The incision was brought up and around the 5th toe excising the sinus. That material was removed and appeared infected. The base of the metatarsal was removed as well. Sagittal saw was used to cut through the proximal 3rd of the 4th metatarsal angle and dissection was taken distally where that and the 4th toe were excised. Skin flaps were trimmed accordingly and thorough irrigation was done followed by closure with a Prolene suture. Sterile dressing was applied and the tourniquet was released. The foot perfused well and he was taken to the recovery room in stable condition. NOEL ALVAREZ Jr., MD Aug 13, 2025 15:52
[2025-08-13] MEDS: labetalol 20mg/4ml (5mg/ml) syringe IV PRN (16:16)
[2025-08-13] MEDS: hydrALAZINE 20mg/ml inj. IV PRN (16:44)
--- NOTE | 2025-08-13 20:04 | PROGRESS NOTE ---
Daily Progress Note Providers to CC ~ Antibiotic Timeout Antibiotic Ordered?: Yes Subjective I evaluated the patient prior to going to surgery the patient has no acute complaints in his resting comfortably in bed. Objective Vital Signs Date Time Temp Pulse Resp B/P (MAP) Pulse Ox O2 Delivery O2 Flow Rate FiO2 08/13/25 18:00 98.0 97 18 141/89 (106) 97 Room Air 08/13/25 17:05 0.0 Result Diagram: 08/13/2544408/13/25444 Gen. No acute distress alert and oriented 4 Lungs clear to ascultation bilaterally, no wheezes rales or rhonchi appreciated Heart normal sinus rhythm no murmurs rubs or clicks noted Abdomen soft nontender bowel sounds are normoactive Lower extremities dressing is present on the left lower extremity as well as the right foot Coagulation Studies Laboratory Tests Test 08/11/25 18:48 Prothrombin Time 12.1 SECONDS (9.0-12.0) H INR International Normalized Ratio 1.2 INR Activated Partial Thromboplast Time 28 SECONDS (22-32) Coagulation Comments Problem\\Assessment\\Plan Problems/Diagnosis: (1) Osteomyelitis # left foot abscess # osteomyelitis of the left foot On IV Zosyn and IV vancomycin MRI with the following findings: "1. Osteomyelitis in the 3rd, 4th and 5th metatarsal bones, the 3rd proximal phalanx, 4th proximal, middle and distal phalanx and the 5th proximal phalanx as well as the navicular bone, lateral aspect of the talus, intermediate and lateral cuneiform, as described. 2. Soft tissue ulceration in the plantar surface of the forefoot deep to the 4th toe. Diffuse cellulitis in the forefoot." Dr. Alvarez orthopedic surgeon consulted on the patient and will be taking the patient to surgery tomorrow. 08/13 status post left foot amputation of the 4th and 5th metatarsal today with Dr. Husam Alvarez orthopedic surgeon Consult ID in the a.m. # history of atrial fibrillation currently in sinus rhythm Apixaban is held for surgery 08/13 likely restart apixaban in the a.m. # kidney disease possibly KAMRON versus CKD Daily labs are ordered Disposition: Physical therapy will resume tomorrow the patient may require rehab Date of Service: Aug 13, 2025 Billing Provider: DO MAYA DO Common Visit Codes: [id number] INP/OBS CARE(HIGH) DO MAYA DO Aug 13, 2025 20:04
[2025-08-13] MEDS: VANCOmycin 1250MG/NS 250ml Bag 250 ML IV SCH (21:25)
[2025-08-14] VITALS (10 sets, daily range): BP systolic 148–162; BP diastolic 91–111; PULSE 64–110; RESP 14–21; TEMP 97–98.1; O2SAT 95–99
[2025-08-14 07:03] LABS: MEAN PLATELET VOLUME 8.0 FL (7.4-10.4); RED CELL DISTRIBUTION WIDTH 13.5 % (11.5-14.5)
[2025-08-14 07:12] LABS: CREATININE 1.16 MG/DL (0.60-1.10); TOTAL CARBON DIOXIDE 24.2 MMOL/L (24-32); eCRCL 72 ML/MIN; eGFR 64 ML/MIN
[2025-08-14] MEDS: hydrALAZINE 20mg/ml inj. IV PRN (12:33)
--- NOTE | 2025-08-14 19:54 | PROGRESS NOTE ---
Daily Progress Note Providers to CC ~ Antibiotic Timeout Antibiotic Ordered?: Yes Subjective I consulted Dr Yoselin Tabor DO Infectious Disease who is awaiting the cultures from the operating room and assessed that the patient likely does not have clear margins and stated the patient we will need to be hospitalized least over the weekend and will likely require six weeks of IV antibiotics. Objective Vital Signs Date Time Temp Pulse Resp B/P (MAP) Pulse Ox O2 Delivery O2 Flow Rate FiO2 08/14/25 13:35 151/97 (115) 08/14/25 12:33 95 08/14/25 10:00 98.1 16 97 Room Air 08/14/25 08:00 0.0 08/14/25 04:59 99 Result Diagram: 08/14/25 0610 08/14/25 0610 Gen. No acute distress alert and oriented 4 Lungs clear to ascultation bilaterally, no wheezes rales or rhonchi appreciated Heart normal sinus rhythm no murmurs rubs or clicks noted Abdomen soft nontender bowel sounds are normoactive Lower extremities dressing is present on the left lower extremity as well as the right foot Coagulation Studies Laboratory Tests Test 08/11/25 18:48 Prothrombin Time 12.1 SECONDS (9.0-12.0) H INR International Normalized Ratio 1.2 INR Activated Partial Thromboplast Time 28 SECONDS (22-32) Coagulation Comments Problem\\Assessment\\Plan Problems/Diagnosis: (1) Osteomyelitis # left foot abscess # osteomyelitis of the left foot On IV Zosyn and IV vancomycin MRI with the following findings: "1. Osteomyelitis in the 3rd, 4th and 5th metatarsal bones, the 3rd proximal phalanx, 4th proximal, middle and distal phalanx and the 5th proximal phalanx as well as the navicular bone, lateral aspect of the talus, intermediate and lateral cuneiform, as described. 2. Soft tissue ulceration in the plantar surface of the forefoot deep to the 4th toe. Diffuse cellulitis in the forefoot." Dr. Alvarez orthopedic surgeon consulted on the patient and will be taking the patient to surgery tomorrow. 08/13 status post left foot amputation of the 4th and 5th metatarsal today with Dr. uHsam Alvarez orthopedic surgeon Consult ID in the a.m. 08/14 Dr Yoselin Tabor DO Infectious Disease evaluated the patient and assessed likely the margins are not clear there were no intraoperative cultures obtained that is the patient will likely require six weeks of IV antibiotics. Informed me the patient will be here over the weekend # history of atrial fibrillation currently in sinus rhythm Apixaban is held for surgery 08/13 likely restart apixaban in the a.m. 08/14 the patient is dressing is blood stained that is the patient is bleeding from his surgical site and we will hold apixaban for an additional day and reassessed tomorrow # kidney disease possibly KAMRON versus CKD Daily labs are ordered Disposition: Physical therapy will resume tomorrow the patient may require rehab Date of Service: Aug 14, 2025 Billing Provider: DO MAYA DO Common Visit Codes: [id number] INP/OBS CARE(HIGH) DO MAYA DO Aug 14, 2025 19:54
--- NOTE | 2025-08-14 23:31 | CONSULTATION REPORT ---
Consult Consult Consultation Reason for Consult: L foot osteomyelitis Consulting Provider: Dr. Leahy Antibiotic Days: Vanc 2, Zosyn 2 Lines: PIV Micro: 08/11 Blood- ngtd HPI: Patient is a 65 year old male with past medical history of RA who is known to the ID service due to prior infections on his R foot who presented to [facility] on 08/11 due to a worsening wound on his L foot. He has been pursuing some outpatient care but could tell that his foot had become bad. Upon admission, he underwent Ortho consultation and amputation of the 4th and 5th metatarsals. ID is asked to consult, however, because his MRI also suggests some involvement at the ankle. On today's exam, he is eager to go home but operative cultures are not back yet (collected?). Patient states he does have access to some outpatient cultures and that he has been taking dicloxacillin and levafloxacin at home. He has no known antibiotic allergies. Past Medical/Surgical History: rheumatoid arthritis, hypertension, AFib, partial right foot amputation Current Medications Medications (Trade) Dose Ordered Sig/Kingsley Route PRN Reason Start Time Stop Time Status Last Admin Dose Admin Piperacillin/ Tazobactam/ Dextrose 50 ml @ 100 mls/hr ONCE ONCE IV 08/11/25 21:05 08/11/25 21:34 DC 08/11/25 21:39 100 MLS/HR Vancomycin HCl 250 ml @ 166.236 mls/hr ONCE ONCE IV 08/11/25 21:05 08/11/25 22:35 DC 08/11/25 22:05 166.236 MLS/HR Sodium Chloride 1,000 ml @ 100 mls/hr Q10H IV 08/11/25 22:20 08/14/25 21:29 100 MLS/HR Piperacillin/ Tazobactam/ Dextrose 100 ml @ 25 mls/hr Q8H@0600,1400,2200 IV 08/12/25 06:00 08/14/25 21:42 25 MLS/HR Vancomycin HCl 250 ml @ 166 mls/hr Q12H@1000,2200 IV 08/12/25 10:00 08/13/25 13:07 DC 08/13/25 10:00 166 MLS/HR Non-Formulary Medication 1 ONCE@0930 ONCE IV 08/13/25 09:30 08/13/25 09:31 DC 08/13/25 09:58 1 Enteral Nutritional Formula (DIANNA Shake w/ Arginine/glutam./ calcium) 1 cup BIDLD PO 08/12/25 17:30 08/14/25 17:30 1 CUP Vancomycin HCl 250 ml @ 166 mls/hr Q12H@1000,2200 IV 08/13/25 22:00 08/14/25 21:43 166 MLS/HR Labetalol HCl (Trandate 20 mg/ 4ml syringe) 5 mg Q5M PRN IV FOR HYPERTENSION-1ST CHOICE 08/13/25 14:55 08/14/25 14:54 DC 08/13/25 16:36 5 MG Hydralazine HCl (Apresoline inj.) 5 mg Q15M PRN IV Hypertension 2nd choice 08/13/25 14:55 08/13/25 18:25 DC 08/13/25 16:44 5 MG Hydralazine HCl (Apresoline inj.) 10 mg Q6H PRN IV high blood pressure 08/14/25 12:00 08/14/25 12:33 10 MG Social History: He prefers home infusion as he plans on working, his office isnear [employer]. He has a daughter who is in nursing Family History: Noncontributory ROS: As in HPI, otherwise negative Objective: Vitals: Afebrile, 64, 21, 153/93, 99% on RA General: A&Ox3, NAD HEENT: NC/AT, normal conjunctiva, no oral lesions CV: RRR, no murmurs Resp: CTA B Abd: Aoft, nontender, nondistended Ext: R foot well healed amputations; L foot in postop dressing Lines: PIV ok Laboratory Tests 08/14/25 06:10 08/13 MRI 1. Osteomyelitis in the 3rd, 4th and 5th metatarsal bones, the 3rd proximal phalanx, 4th proximal, middle and distal phalanx and the 5th proximal phalanx as well as the navicular bone, lateral aspect of the talus, intermediate and lateral cuneiform, as described. 2. Soft tissue ulceration in the plantar surface of the forefoot deep to the 4th toe. Diffuse cellulitis in the forefoot. Assessment: // L foot osteomyelitis s/p 4th and 5th digit amputations but MRI suggests enhancement of the ankle bones as well. I don't see any operative cultures yet but patient states he had outpatient cultures sent to the ID office -ESR 34, CRP 3.1 // RA, without IS recorded on home meds // Antibiotic Allergies: none known Plan: - Continue Vanc, Zosyn for now - Follow up operative cultures or obtain his outpatient cultures to deescalate - Anticipate need for 6 weeks of therapy for retained OM - Wound care per surgery - Monitor CBC, CMP, ESR, CRP weekly - Dispo planning; he prefers home infusion - Thank you for the consult, will continue to follow URIEL BRAXTON DO Aug 14, 2025 23:31
[2025-08-15 05:00] VITALS: BP 163/118; PULSE 72; RESP 18; TEMP 97.9; O2SAT 99
[2025-08-15 06:58] VITALS: RESP 16; O2SAT 96
[2025-08-15 07:18] LABS: MEAN PLATELET VOLUME 7.8 FL (7.4-10.4); RED CELL DISTRIBUTION WIDTH 13.8 % (11.5-14.5)
[2025-08-15 07:40] LABS: CREATININE 1.06 MG/DL (0.60-1.10); TOTAL CARBON DIOXIDE 25.8 MMOL/L (24-32); eCRCL 78 ML/MIN; eGFR 71 ML/MIN
[2025-08-15] MEDS: VANCOMYCIN LEVEL IV ONE (09:30)
[2025-08-15 10:00] VITALS: BP 135/99; PULSE 103; RESP 18; TEMP 97.3; O2SAT 98
[2025-08-15 18:00] VITALS: BP 149/98; PULSE 91; RESP 18; TEMP 97.3; O2SAT 99
--- NOTE | 2025-08-15 19:40 | PROGRESS NOTE ---
Daily Progress Note Providers to CC ~ Antibiotic Timeout Antibiotic Ordered?: Yes Subjective The patient is doing well other than that has still some bleeding of the bottom of his left foot. I will continue to hold apixaban for now Objective Vital Signs Date Time Temp Pulse Resp B/P (MAP) Pulse Ox O2 Delivery O2 Flow Rate FiO2 08/15/25 10:00 97.3 103 18 135/99 (111) 98 Room Air 08/15/25 06:58 0.0 08/14/25 04:59 99 Result Diagram: 08/15/2563008/15/25630 Gen. No acute distress alert and oriented 4 Lungs clear to ascultation bilaterally, no wheezes rales or rhonchi appreciated Heart normal sinus rhythm no murmurs rubs or clicks noted Abdomen soft nontender bowel sounds are normoactive Lower extremities dressing is present on the left lower extremity as well as the right foot Coagulation Studies Laboratory Tests Test 08/11/25 18:48 Prothrombin Time 12.1 SECONDS (9.0-12.0) H INR International Normalized Ratio 1.2 INR Activated Partial Thromboplast Time 28 SECONDS (22-32) Coagulation Comments Problem\\Assessment\\Plan Problems/Diagnosis: (1) Osteomyelitis # left foot abscess # osteomyelitis of the left foot On IV Zosyn and IV vancomycin MRI with the following findings: "1. Osteomyelitis in the 3rd, 4th and 5th metatarsal bones, the 3rd proximal phalanx, 4th proximal, middle and distal phalanx and the 5th proximal phalanx as well as the navicular bone, lateral aspect of the talus, intermediate and lateral cuneiform, as described. 2. Soft tissue ulceration in the plantar surface of the forefoot deep to the 4th toe. Diffuse cellulitis in the forefoot." Dr. Alvarez orthopedic surgeon consulted on the patient and will be taking the patient to surgery tomorrow. 08/13 status post left foot amputation of the 4th and 5th metatarsal today with Dr. Husam Alvarez orthopedic surgeon Consult ID in the a.m. 08/14 Dr Yoselin Tabor DO Infectious Disease evaluated the patient and assessed likely the margins are not clear there were no intraoperative cultures obtained that is the patient will likely require six weeks of IV antibiotics. Informed me the patient will be here over the weekend 08/15 white blood cell count remains normal range and the patient remains afebrile # history of atrial fibrillation currently in sinus rhythm Apixaban is held for surgery 08/13 likely restart apixaban in the a.m. 08/14 the patient is dressing is blood stained that is the patient is bleeding from his surgical site and we will hold apixaban for an additional day and reassessed tomorrow 08/15 patient continues to bleed from his surgical site. # kidney disease possibly KAMRON versus CKD Daily labs are ordered 08/15 improving Disposition: Physical therapy will resume tomorrow the patient may require rehab- anticipate PICC line on Sunday Date of Service: Aug 15, 2025 Billing Provider: DO MAYA DO Common Visit Codes: [id number] INP/OBS CARE(HIGH) DO MAYA DO Aug 15, 2025 19:40
[2025-08-15 20:00] VITALS: RESP 18; O2SAT 99
[2025-08-15 22:00] VITALS: BP 156/118; PULSE 94; RESP 18; TEMP 98.5; O2SAT 97
[2025-08-15] MEDS: vancomycin/NS 1 GM ADD-VANTAGE 250 ML IV SCH (22:07)
[2025-08-16 06:00] VITALS: BP 125/90; PULSE 99; RESP 14; TEMP 98.8; O2SAT 98
[2025-08-16 07:06] LABS: MEAN PLATELET VOLUME 7.9 FL (7.4-10.4); RED CELL DISTRIBUTION WIDTH 14.0 % (11.5-14.5)
[2025-08-16 07:51] LABS: CREATININE 1.16 MG/DL (0.60-1.10); TOTAL CARBON DIOXIDE 27.8 MMOL/L (24-32); eCRCL 72 ML/MIN; eGFR 64 ML/MIN
[2025-08-16 10:00] VITALS: BP 145/90; PULSE 102; RESP 15; TEMP 97.9; O2SAT 98
--- NOTE | 2025-08-16 17:44 | PROGRESS NOTE ---
Daily Progress Note Providers to CC ~ Antibiotic Timeout Antibiotic Ordered?: Yes Subjective Overall the patient is doing well- his left foot continues to bleed in the dressing I spoke with Dr. Alvarez whom was not concerned as that has not a significant amount of bleeding and recommended restarting apixaban. Objective Vital Signs Date Time Temp Pulse Resp B/P (MAP) Pulse Ox O2 Delivery O2 Flow Rate FiO2 08/16/25 09:44 99 08/16/25 08:00 Room Air 08/16/25 06:00 98.8 14 125/90 (102) 98 08/15/25 20:00 0.0 08/14/25 04:59 99 Result Diagram: 08/16/2561608/16/25616 Gen. No acute distress alert and oriented 4 Lungs clear to ascultation bilaterally, no wheezes rales or rhonchi appreciated Heart normal sinus rhythm no murmurs rubs or clicks noted Abdomen soft nontender bowel sounds are normoactive Lower extremities dressing is present on the left lower extremity as well as the right foot Coagulation Studies Laboratory Tests Test 08/11/25 18:48 Prothrombin Time 12.1 SECONDS (9.0-12.0) H INR International Normalized Ratio 1.2 INR Activated Partial Thromboplast Time 28 SECONDS (22-32) Coagulation Comments Problem\\Assessment\\Plan Problems/Diagnosis: (1) Osteomyelitis # left foot abscess # osteomyelitis of the left foot On IV Zosyn and IV vancomycin MRI with the following findings: "1. Osteomyelitis in the 3rd, 4th and 5th metatarsal bones, the 3rd proximal phalanx, 4th proximal, middle and distal phalanx and the 5th proximal phalanx as well as the navicular bone, lateral aspect of the talus, intermediate and lateral cuneiform, as described. 2. Soft tissue ulceration in the plantar surface of the forefoot deep to the 4th toe. Diffuse cellulitis in the forefoot." Dr. Alvarez orthopedic surgeon consulted on the patient and will be taking the patient to surgery tomorrow. 08/13 status post left foot amputation of the 4th and 5th metatarsal today with Dr. Husam Alvarez orthopedic surgeon Consult ID in the a.m. 08/14 Dr Yoselin Tabor DO Infectious Disease evaluated the patient and assessed likely the margins are not clear there were no intraoperative cultures obtained that is the patient will likely require six weeks of IV antibiotics. Informed me the patient will be here over the weekend 08/15 white blood cell count remains normal range and the patient remains afebrile 07/16 the patient continues to do well there was some mild bleeding in the dressing of his left foot which is to be expected. # history of atrial fibrillation currently in sinus rhythm Apixaban is held for surgery 08/13 likely restart apixaban in the a.m. 08/14 the patient is dressing is blood stained that is the patient is bleeding from his surgical site and we will hold apixaban for an additional day and reassessed tomorrow 08/15 patient continues to bleed from his surgical site. 08/[address] Alvarez and since the bleeding is minimal was not concerned and recommended to restart apixaban. # kidney disease possibly KAMRON versus CKD Daily labs are ordered Stable Disposition: The patient is ambulating ad kanika in the room and physical therapy signed off- anticipate PICC line on Sunday and recommendations for antibiotics by Dr Yoselin Tabor DO Infectious Disease - will need six weeks of IV antibiotics Date of Service: Aug 16, 2025 Billing Provider: DO MAYA DO Common Visit Codes: [id number] INP/OBS CARE(HIGH) DO MAYA DO Aug 16, 2025 17:43
[2025-08-16 18:00] VITALS: BP 183/125; PULSE 80; RESP 14; TEMP 98.5; O2SAT 98
[2025-08-16 22:00] VITALS: BP 150/70; PULSE 105; RESP 16; TEMP 96.9; O2SAT 98
[2025-08-17 05:50] LABS: MEAN PLATELET VOLUME 8.2 FL (7.4-10.4); RED CELL DISTRIBUTION WIDTH 13.7 % (11.5-14.5)
[2025-08-17 05:58] LABS: CREATININE 1.00 MG/DL (0.60-1.10); TOTAL CARBON DIOXIDE 23.6 MMOL/L (24-32); eCRCL 83 ML/MIN; eGFR 75 ML/MIN
[2025-08-17] MEDS: VANCOMYCIN LEVEL IV ONE (08:58)
--- NOTE | 2025-08-17 12:13 | PROGRESS NOTE ---
Daily Progress Note Providers to CC ~ Antibiotic Timeout Antibiotic Ordered?: Yes Subjective No new complaints. Patient states that if his antibiotics can be arranged , he wants to go home. Objective Vital Signs Date Time Temp Pulse Resp B/P (MAP) Pulse Ox O2 Delivery O2 Flow Rate FiO2 08/17/25 08:54 99 08/16/25 22:00 96.9 16 150/70 (96) 98 Room Air 08/15/25 20:00 0.0 08/14/25 04:59 99 Result Diagram: 08/17/2544308/17/25443 Gen. awake alert oriented asymptomatic HEENT: Normocephalic, atraumatic, extraocular movements are intact, sclera anicteric, conjunctiva pinkish, moist oral mucosa, no rash or ulcers. NECK: Supple, no JVD, trachea midline. CHEST: Clear to auscultation, no wheezes crackles or rhonchi. HEART: Regular rate rhythm, no murmur gallop or rub. ABDOMEN: Soft, nontender, no organomegaly. EXTREMITIES: No cyanosis clubbing or edema. NEURO EXAM: Grossly nonfocal. MUSCULOSKELETAL : No joint swelling or deformities. SKIN: No rash or ulcers noted. Bandage over the left foot noted. Coagulation Studies Laboratory Tests Test 08/11/25 18:48 Prothrombin Time 12.1 SECONDS (9.0-12.0) H INR International Normalized Ratio 1.2 INR Activated Partial Thromboplast Time 28 SECONDS (22-32) Coagulation Comments Other Results Medications reviewed Problem\\Assessment\\Plan Problems/Diagnosis: (1) Osteomyelitis # osteomyelitis/abscess of the left foot: Continue IV Zosyn and vancomycin. Patient was evaluated with an MRI which showed the following findings. "1. Osteomyelitis in the 3rd, 4th and 5th metatarsal bones, the 3rd proximal phalanx, 4th proximal, middle and distal phalanx and the 5th proximal phalanx as well as the navicular bone, lateral aspect of the talus, intermediate and lateral cuneiform, as described. 2. Soft tissue ulceration in the plantar surface of the forefoot deep to the 4th toe. Diffuse cellulitis in the forefoot." Dr. Alvarez orthopedic surgeon consulted and on 08/13 status patient underwent left foot amputation of the 4th and 5th metatarsal . Dr Yoselin Tabor DO Infectious Disease evaluated the patient and assessed likely the margins are not clear there were no intraoperative cultures obtained that is the patient will likely require six weeks of IV antibiotics. Patient is awaiting a PICC line placement . # History of atrial fibrillation : Continue eliquis # kidney disease possibly KAMRON versus CKD Continue monitor daily Cr. Disposition: The patient is ambulating ad kanika in the room and physical therapy signed off- anticipate PICC line today and recommendations for antibiotics by Dr Yoselin Tabor DO Infectious Disease - will need six weeks of IV antibiotics Date of Service: Aug 17, 2025 Billing Provider: MARINE HEAD MD Common Visit Codes: [id number] INP/OBS CARE(HIGH) MARINE HEAD MD Aug 17, 2025 12:13
--- NOTE | 2025-08-17 13:12 | RADIOLOGY REPORT ---
CHEST RADIOGRAPH Indication: RIGHT PICC PLACEMENT VERIFICATION Technique: Single frontal view of the chest was obtained COMPARISON: ANGIO LINE PLACEMENT(PICC NURSE) on DOS: 08/17/25 FINDINGS: Lines and Tubes: Right PICC in satisfactory position overlying the superior vena cava. Lungs: Clear Pleura: No effusion. No pneumothorax. Cardiomediastinal contours: Unremarkable Bones: Unremarkable IMPRESSION: Right PICC in satisfactory position.
[2025-08-17 17:07] VITALS: BP 172/110; PULSE 93
[2025-08-17 17:10] VITALS: BP 149/97; PULSE 90
--- NOTE | 2025-08-17 18:14 | PROGRESS NOTE ---
Progress Note ID Providers to CC ~ Progress Note Progress Note: Antibiotic Days: Vanc 5, Zosyn 5 Lines: PIV Micro: 08/11 Blood- ngtd Subjective: Patient was anxious to go home today. Unfortunately, it does not look like operative culture were taken Objective: Vitals: Afebrile, 105, 16, 150/70, 98% on RA General: Alert, NAD HEENT: NC/AT, normal conjunctiva, no oral lesions CV: Regular Resp: Clear anterirly Abd: Soft, nontender, nondistended Ext: R foot well healed amputations; L foot in postop dressing Lines: PIV ok Laboratory Tests 08/17/25 04:44 Assessment: // L foot osteomyelitis s/p 4th and 5th digit amputations but MRI suggests enhancement of the ankle bones as well. Operative cultures not taken -ESR 34, CRP 3.1 // RA, without IS recorded on home meds // Antibiotic Allergies: none known Plan: - Scripts for home infusion Vancomycin 750 mg IV Q12 hours Rocephin 2 gm IV daily CBC, CMP, ESR, CRP weekly Stop date: 09/24/25 Please remove PICC once therapy is complete - Therapy is empiric. He is not diabetic so anaerobic coverage no added. Follow up in ID office prior to stop date to ensure efficacy. He also thinks there may be recent cultures at [facility] wound care URIEL BRAXTON DO Aug 17, 2025 18:14
[2025-08-17 18:38] VITALS: BP 149/97; PULSE 85; RESP 16; TEMP 98.2; O2SAT 98
[2025-08-17] MEDS: vancomycin inj. 750 MG in normal saline 250ml IV soln 250 ML IV SCH (21:16)
[2025-08-17 22:00] VITALS: BP 160/99; PULSE 96; RESP 16; TEMP 97.5; O2SAT 97
[2025-08-18 05:55] LABS: CREATININE 1.18 MG/DL (0.60-1.10); TOTAL CARBON DIOXIDE 26.7 MMOL/L (24-32); eCRCL 70 ML/MIN; eGFR 62 ML/MIN
[2025-08-18 05:58] LABS: MEAN PLATELET VOLUME 8.2 FL (7.4-10.4); RED CELL DISTRIBUTION WIDTH 13.6 % (11.5-14.5)
[2025-08-18 06:00] VITALS: BP 165/100; PULSE 96; RESP 15; TEMP 97.3; O2SAT 98
[2025-08-18 10:00] VITALS: PULSE 94; RESP 14; TEMP 98.8; O2SAT 98
[2025-08-18 10:12] VITALS: BP 147/82; PULSE 92
[2025-08-18 10:15] VITALS: BP_SYST 147; PULSE 92
[2025-08-18] MEDS: CefTRIAXone 2gm/D5W 50ml BAG 50 ML IV ONE (12:35)
--- NOTE | 2025-08-18 17:00 | PROGRESS NOTE ---
Progress Note ID Providers to CC ~ Progress Note Progress Note: Antibiotic Days: Vanc 6, Zosyn 6 Lines: PICC Micro: 08/11 Blood- negative Subjective: Patient's share of cost was over $3000 but he still prefers home infusion Objective: Vitals: Afebrile, 94, 14, 165/100, 98% on RA General: Alert, NAD CV: Regular Resp: Clear anterirly Abd: Soft, nontender, nondistended Ext: R foot well healed amputations; L foot in postop dressing Lines: PICC occlusively dressed Laboratory Tests 08/18/25 05:27 Assessment: // L foot osteomyelitis s/p 4th and 5th digit amputations but MRI suggests enhancement of the ankle bones as well. Operative cultures not taken -ESR 34, CRP 3.1 // RA, without IS recorded on home meds // Antibiotic Allergies: none known Plan: - Scripts for home infusion Vancomycin 750 mg IV Q12 hours Rocephin 2 gm IV daily CBC, CMP, ESR, CRP weekly Stop date: 09/24/25 Please remove PICC once therapy is complete - Follow up in ID office URIEL BRAXTON DO Aug 18, 2025 17:00
[2025-08-19] MEDS ORDERED: VANCOMYCIN LEVEL IV ONE (09:30)
== END 2025-08-18 15:50 | disposition home or self-care (01) | DRG 475 ==
LOC: ER 18:22 → ED HOLD 21:58 → EDBEDREQ 08-12 01:09 → ORTHO 4S 08-12 01:55
PROVIDERS: ADMIT Internal Medicine Pulmonary Disease; ATTEND Family Medicine
PROC: 0Y6N0ZF Detachment at Left Foot, Partial 5th Ray, Open Approach (ICD-10-PCS; 2025-08-13)
PROC: 3E0T3BZ Introduction of Anesthetic Agent into Peripheral Nerves and Plexi, Percutaneous Approach (ICD-10-PCS; 2025-08-13)
PROC: 0Y6N0ZD Detachment at Left Foot, Partial 4th Ray, Open Approach (ICD-10-PCS; principal; 2025-08-13 14:51)
DX: M86.8X7 Other osteomyelitis, ankle and foot (principal); L02.612 Cutaneous abscess of left foot; N17.9 Acute kidney failure, unspecified; I48.91 Unspecified atrial fibrillation; G62.9 Polyneuropathy, unspecified; I10 Essential (primary) hypertension; M06.9 Rheumatoid arthritis, unspecified; Z79.899 Other long term (current) drug therapy; Z79.01 Long term (current) use of anticoagulants
CPT/HCPCS: 36569; 93306; 96365; 99285; Z7506; Z7508; 36415; 71045; 73630; 73718; 76942; 80048; 80053; 80061; 80202; 81003; 82948; 83036; 83605; 83735; 83880; 84100; 84145; 84484; 85025; 85610; 85651; 85730; 86140; 87040; 87081; 93005; A4618; A6222; A6223; A6253; A6258; A6446; A6449; A7000; C1751; G0378; J0360; J0696; J0735; J1100; J2003; J2250; J2405; J2543; J2704; J2795; J3010; J3373; J3374; J3490; J7030; J7050; J7120